=== PATIENT | female | born 1970 | race Caucasian/White ===

== ENCOUNTER 2024-08-26 06:14 | Day surgery (SDC) | payer MEDICAID ==
[2024-08-26] MEDS ORDERED: Sodium Chloride 0.9(Preservative Free) 10 ML IJ ONE (06:15)
[2024-08-26] MEDS ORDERED: LIDOCAINE HCL 1% AMPUL 5 ML IJ ONE (06:15)
[2024-08-26 07:15] LABS: HCG SERUM TEST NEGATIVE (NEGATIVE)
[2024-08-26] MEDS ORDERED: propofoL IV ONE ×2 (08:03→08:15)
[2024-08-26] MEDS ORDERED: CLINDAMYCIN-D5W 600 MG/50 ML IV ONE (08:03)
[2024-08-26] MEDS ORDERED: Sodium Chloride 0.9% 1000 ML 1,000 ML ONE (08:48)
[2024-08-26] MEDS ORDERED: MORPHINE SULFATE 2 MG INJ ONE ×2 (09:02→09:22)
[2024-08-26] MEDS ORDERED: Lactated Ringers 1,000 ML IV ONE (10:19)
--- NOTE | 2024-08-26 10:28 | XRAY ---
Indication: Spinal cord stimulator trial. Intraoperative fluoroscopy provided for 2 minute 32 seconds. 9 digital spot images submitted for interpretation demonstrates introducer needle tip posterior to presumed L1. Single epidural lead inserted with tip positioned mid thoracic, approximately T6-T7 interspace level. Correlate with intraoperative findings/report.
--- NOTE | 2024-08-26 11:06 | XRAY ---
2 minutes 32 seconds of fluoroscopy used in surgery for a spinal cord stimulator trial.
== END 2024-08-26 09:48 | disposition home or self-care (01) ==
LOC: SDC-PAIN 06:14
PROVIDERS: ATTEND Psychiatry & Neurology Pain Medicine
DX: M96.1 Postlaminectomy syndrome, not elsewhere classified (principal); E11.9 Type 2 diabetes mellitus without complications
CPT/HCPCS: 36415; 63650; 72100; 82947; 84703; C1897; J2270; J2704